=== PATIENT | female | born 1995 | race Caucasian/White ===

== ENCOUNTER 2020-10-13 15:16 | Emergency (ER) | payer BC ==
[~2020-10-13] VITALS: Ht 172.7 cm; Wt 66.2 kg
--- NOTE | 2020-10-13 15:42 | NUR ---
BIBS FOR C/O L 4TH TOE PAIN WITH LIGHT SWELLING S/P HITTING IT IN THE FOOT OF BED 2 HOURS AGO. RATES ON AND OFF PAIN 5/10. WILL CONTINUE TO MONITOR THE PATIENT.
[2020-10-13] MEDS ORDERED: NAPR-1164 PO (16:21)
[2020-10-13 17:12] VITALS: BP 122/77
--- NOTE | 2020-10-13 17:12 | NUR ---
Patient discharged to home in stable condition. Written and verbal after care instructions given. Patient verbalizes understanding of instruction.
== END 2020-10-13 17:13 | disposition home or self-care (01) ==
LOC: ER 15:24
DX: S92.512A Displaced fracture of proximal phalanx of left lesser toe(s), initial encounter for closed fracture (principal); Z79.899 Other long term (current) drug therapy; W22.8XXA Striking against or struck by other objects, initial encounter; Y93.89 Activity, other specified; Y92.89 Other specified places as the place of occurrence of the external cause; Y99.8 Other external cause status
CPT/HCPCS: 73630-TC